=== PATIENT | female | born 2005 | race African-American/Black ===

== ENCOUNTER 2025-02-19 22:16 | Emergency (ER) | payer SELFPAY ==
[~2025-02-19] VITALS: Ht 165.1 cm; Wt 81.0 kg
[2025-02-19 22:25] VITALS: O2SAT 98
[2025-02-19 22:36] VITALS: BP 134/80; PULSE 107; RESP 16; TEMP 36.9; O2SAT 100
[2025-02-19] MEDS: POLYETHYLENE GLYCOL 3350 (17GM) 1 DOSE PACK PO ONE (23:10)
[2025-02-19] MEDS: DOCUSATE SODIUM 100MG CAPSULE PO ONE (23:10)
[2025-02-19] MEDS ORDERED: POLY17PO3 MT (23:28)
[2025-02-19] MEDS ORDERED: NA P133E RC (23:28)
== END 2025-02-19 23:37 | disposition home or self-care (01) ==
LOC: ER 22:16
DX: K59.00 Constipation, unspecified (principal); Z79.899 Other long term (current) drug therapy
CPT/HCPCS: 99283; Z7610